=== PATIENT | female | born 1975 | race Caucasian/White ===

== ENCOUNTER → 2024-01-05 15:13 | Outpatient (REF) | payer OTHER, SELFPAY | LOC: WDC 15:13 | PROVIDERS: ATTENDING PHYSICIAN Physician Assistant Medical | DX: Z12.31 Encounter for screening mammogram for malignant neoplasm of breast (principal) | CPT/HCPCS: 77063; 77067 ==

== ENCOUNTER → 2024-04-27 08:56 | Outpatient (REF) | payer OTHER, SELFPAY | LOC: WDC 08:56 | PROVIDERS: ATTENDING PHYSICIAN Physician Assistant Medical | DX: R92.30 Dense breasts, unspecified (principal); R92.2 Inconclusive mammogram | CPT/HCPCS: 76641 ==

== ENCOUNTER → 2024-04-29 11:38 | Outpatient (REF) | payer OTHER, SELFPAY ==
--- NOTE | 2024-04-29 14:06 | OID.BR.INTR ---
[facility] Navigator - Initial
- -
Date of Contact: 04/29/24
Met with patient. Patient given written information on navigator services available at [facility]. Will follow up as needed per protocol.
== END ==
LOC: WDC 11:38
PROVIDERS: ATTENDING PHYSICIAN Physician Assistant Medical
DX: N63.41 Unspecified lump in right breast, subareolar (principal)
CPT/HCPCS: 88305; 19083

== ENCOUNTER → 2024-06-30 06:15 | Day surgery (SDC) | payer OTHER, SELFPAY | LOC: GI 06:15 | PROVIDERS: ATTENDING PHYSICIAN Internal Medicine | DX: Z12.11 Encounter for screening for malignant neoplasm of colon (principal); D12.0 Benign neoplasm of cecum | CPT/HCPCS: 45380; 88305 ==

== ENCOUNTER → 2024-11-01 14:56 | Outpatient (REF) | payer OTHER, SELFPAY | LOC: WDC 14:56 | PROVIDERS: ATTENDING PHYSICIAN Family Medicine | DX: R92.8 Other abnormal and inconclusive findings on diagnostic imaging of breast (principal) | CPT/HCPCS: 76642 ==

== ENCOUNTER → 2025-01-05 14:57 | Outpatient (REF) | payer OTHER, SELFPAY | LOC: WDC 14:57 | PROVIDERS: ATTENDING PHYSICIAN Family Medicine | DX: Z12.31 Encounter for screening mammogram for malignant neoplasm of breast (principal) | CPT/HCPCS: 77063; 77067 ==

== ENCOUNTER → 2025-04-17 09:33 | Outpatient (REF) | payer OTHER, SELFPAY | LOC: WDC 09:33 | PROVIDERS: ATTENDING PHYSICIAN Family Medicine | DX: R92.2 Inconclusive mammogram (principal); Z12.39 Encounter for other screening for malignant neoplasm of breast | CPT/HCPCS: 76641 ==

== ENCOUNTER 2025-08-28 06:15 | Emergency (ER) | payer OTHER, SELFPAY ==
[2025-08-28 06:19] VITALS: BP 149/79
[2025-08-28 06:25] VITALS: BP 126/72
[2025-08-28 07:00] VITALS: BP 114/71
[2025-08-28 07:10] VITALS: BP 114/71; BMI 23.7
[2025-08-28] MEDS: NSS 500 IV (07:13)
[2025-08-28 07:19] LABS: Hematocrit 37.8 % (37.0-47.0); Hemoglobin 13.2 g/dL (12.0-16.0); Mean Corp Hgb Conc. 34.9 g/dL (33.0-37.0); Mean Corpuscular Volume 87.9 fL (81.0-99.0); Nucleated Red Blood Cells % 0 %; Platelet Count 266 10^3/uL (130-400); Red Cell Dist. Width 12.2 % (11.5-14.5)
[2025-08-28 07:39] LABS: ALT (SGPT) 18 U/L (0-35); AST (SGOT) 26 U/L (14-36); Albumin 4.4 g/dl (3.5-5.0); Alkaline Phosphatase 43 U/L (38-126); Blood Urea Nitrogen 14 mg/dl (7-17); Calcium 9.7 mg/dl (8.4-10.2); Carbon Dioxide 27 mmol/L (22-30); Chloride 104 mmol/L (98-107); Estimated Creatinine Clearance 84 ml/min; Glucose 94 mg/dl (70-99); Potassium 4.2 mmol/L (3.5-5.1); Sodium 136 mmol/L (135-145); Total Protein 7.0 g/dl (6.3-8.2); eGFR > 60.00
--- NOTE | 2025-08-28 07:58 | ED.GENMED ---
History of Present Illness
General
Chief Complaint: Fainting Sensation
Source: patient and spouse
Time Seen by Provider: 08/28/25 06:37
History of Present Illness
History of Present Illness:
49-year-old female presents after she suddenly felt like she was going to pass out while at home. Patient states she woke up feeling well and had urinated and was washing her face. Shortly after that she felt lightheaded and got sweaty. She
states she felt like she was going to pass out. She woke up her . She subsequent became nauseous and vomited a little bit. She states the symptoms lasted about 10 minutes and resolved. She now feels much improved. She denies any
associated chest pain or palpitations. 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 She denies recent travel
no leg swelling, no shortness of breath, no family history of sudden cardiac . No history of CAD. She is not a smoker. Admits to occasional alcohol
Past History
Past History
ED Past Medical History: None
Social History
Tobacco: Non-smoker
Personal:
Living: with family
Family History
Family History: Negative Early CAD or CAD
Phy Exam
Physical Exam
Physical Exam:
CONSTITUTIONAL Patient alert and oriented to person, place and time. Well-appearing. Vital signs reviewed.
HEAD atraumatic, normocephalic.
EYES eyelids normal to inspection, Extraocular muscles intact, Conjunctiva normal, Sclera normal.
NECK normal range of motion, Trachea midline, no jugular venous distention.
RESPIRATORY CHEST No respiratory distress noted, Chest expansion equal, Bilateral breath sounds clear.
CARDIOVASCULAR regular and bradycardic, Heart sounds normal.
ABDOMEN abdomen nontender, Bowel sounds normal. No distention.
BACK normal inspection, no obvious deformities
UPPER EXTREMITY range of motion normal, Motor strength normal, no cyanosis, no edema.
LOWER EXTREMITY range of motion normal, Motor strength normal, no cyanosis, no edema.
NEURO Speech normal, No focal motor deficits, [place] coma scale 15, Memory normal, Cranial Nerves intact to screening exam.
SKIN skin warm, dry, and normal in color.
Course
Orders/Labs/Results
Orders:
Orders
08/28/25 06:21
EKG [Electrocardiogram (*1)] Urgent
Reason for Study: Fatigue / Weakness
EKG- Treatment ONCE
08/28/25 06:39
ECG [Electrocardiogram (*1)] Urgent
Reason for Study: Syncope
EKG- Treatment ONCE
08/28/25 06:52
0.9% Sodium Chloride 500 ml [Nss] 500 ml IV BOLUS
08/28/25 07:06
Complete Blood Count/With Diff Urgent
Comprehensive Metabolic Panel Urgent
08/28/25 07:06
08/28/25 07:06
Vital Signs
Initial and Last Documented VS:
Initial Vital Signs
Temp Pulse Resp BP Pulse Ox
98.9 F 61 18 149/79 100
08/28/25 06:19 08/28/25 06:19 08/28/25 06:19 08/28/25 06:19 08/28/25 06:19
Last Documented Vital Signs
Temp Pulse Resp BP Pulse Ox
98.6 F 50 16 114/71 100
08/28/25 07:10 08/28/25 07:10 08/28/25 07:10 08/28/25 07:10 08/28/25 07:10
MDM/Problems Addressed
Differential Diagnosis Includes:
Vasovagal syncope, cardiac arrhythmia, dehydration, hypoglycemia, blood loss anemia
MDM/Problems Addressed:
Near syncope
*Pulse Oximetry
SaO2: 100
Oxygen Mode of Delivery: Room air
Patient hypoxic: no
*EKG
Interpreted by ED Provider?: Yes
Interpretation: normal
Rate: bradycardiac
Rhythm: sinus
[place]: normal axis
Interval: normal interval
QRS Pattern: normal QRS
Ischemia: no ischemia
*Web Applications Administrator Interpretation
Rate: normal
Interpretation: normal
Rhythm: sinus
*Critical Care Note
Total Time (30-74mins, 75-104mins- exclusive of procedures): Not Applicable
Data Reviewed
Source: patient
Further Testing Considered But Not Given:
Considered D-dimer but no PE risk factors and no tachycardia, tachypnea or hypoxia
Patient Management
Escalation/DeEscalation of care consider admission/obs:
Considered admission for further telemonitoring, however EKG unremarkable, labs normal, telemetry monitoring normal. Suspect vasovagal event in light of her nausea and diaphoresis. ED workup unremarkable. Okay for discharge
ED Attending Note
-
Portions of this chart may have been created with voice recognition software.� Occasional wrong word or��sound alike� substitutions may have occurred due to the inherent limitations of voice recognition software.
Discharge Plan
Departure
Patient Disposition: Home (Routine Discharge)
Date of Disposition: 08/28/25
Time of Disposition: 08:02
Patient with high blood pressure during this ER visit?: No
Discharge Problem:
Near syncope
Instructions: Near Fainting (DC)
Prescriptions:
No Action
Motrin 100 MG tablet
600 mg PO TID
Ortho Novom 777
1 tab PO DAILY
bupropion HCl [Wellbutrin] 75 mg Tablet
75 mg PO DAILY
Referrals:
Nimisha Pool MD [Family Provider, Family Practice]
Activity Restrictions/Additional Instructions:
Please drink plenty of fluids. Please see your doctor in the next 2 to 3 days for follow-up evaluation. Return immediately for chest pain, shortness of breath, palpitations, weakness of any kind or any other concerns.
Interventions
Interventions:
*Risk Screen - Suicide Last Done: 08/28/25 06:19
*General Assessment Last Done: 08/28/25 06:19
*Neglect/Abuse Screening Last Done: 08/28/25 06:19
*ED- Fall Risk Assessment Last Done: 08/28/25 06:19
*ED COVID-19 Vaccine History Last Done: 08/28/25 06:19
*ED Influenza Vaccine History Last Done: 08/28/25 06:19
ED- Cardiac Assessment Last Done: 08/28/25 07:10
ED- Neurological Assessment Last Done: 08/28/25 07:10
Discharge Date and Time
Print Language: ARMENIAN
[2025-08-28 08:00] VITALS: BP 115/73
== END 2025-08-28 08:36 | disposition home or self-care (01) ==
LOC: EMR 06:15
PROVIDERS: EMERGENCY PHYSICIAN Emergency Medicine; FAMILY PHYSICIAN Family Medicine
DX: R55 Syncope and collapse (principal); R42 Dizziness and giddiness
CPT/HCPCS: 99284; 96360; 80053; 85025; 93005